=== PATIENT | female | born 1990 | race African-American/Black ===

== ENCOUNTER 2021-04-22 13:30 | Emergency (ER) | payer OTHER, SELFPAY ==
[2021-04-22 13:32] VITALS: BP 126/65; PULSE 71; RESP 18; TEMP 36.3; O2SAT 100
[2021-04-22 13:55] LABS: Basophils Percent Auto 0.5 % (0.2-1.2); Eosinophils Percent Auto 0.3 % (0-4.4); Hematocrit 37.5 % (37.0-47.0); Hemoglobin 12.6 g/dL (12.0-15.0); Immature Granulocyte Absolute 0.02 K/mm3 (0.00-0.031); Immature Granulocyte Percent A 0.2 % (0-0.5); Lymphocytes Percent Auto 19.7 % (18.3-44.2); Mean Corpuscular HGB Conc 33.6 g/dl (32-36); Mean Corpuscular Hemoglobin 31.3 pg (26-34); Mean Corpuscular Volume 93.3 fl (80-100); Mean Platelet Volume 10.7 fl (7.4-10.4); Monocytes Absolute Auto 0.5 K/mm3 (0.1-0.6); Monocytes Percent Auto 5.3 % (2.6-8.5); Neutrophils Absolute Auto 6.4 K/mm3 (1.3-6.7); Platelet Count Result 265 k/mm3 (150-375); Red Blood Count 4.02 M/mm3 (4.2-5.4); Red Cell Distribution Width 11.9 % (11.5-14.5); White Blood Count 8.7 K/mm3 (4.5-10.0)
[2021-04-22 13:59] LABS: Add Urine Microscopic? YES; Appearance Urine Cloudy (Clear); Bacteria Urine Trace /hpf; Bilirubin Urine Negative (Negative); Blood Urine 1+ (Negative); Color Urine Yellow (Yellow); Glucose Urine UA Negative (Negative); Ketones Urine 2+ mg/dL (Negative); Leukocyte Esterase Ur Trace LEU/UL (Negative); Mucus Urine Few /lpf; Nitrate Urine Negative (Negative); Protein Urine 1+ mg/dL (Negative); Specific Grav Ur 1.029 (1.001-1.035); Squamous Epithelial Cell Urine Many /hpf (Few)
[2021-04-22 14:05] LABS: Alanine Aminotransferase 23 U/L (4-35); Albumin Level 4.3 g/dL (3.5-5.1); Alkaline Phosphatase 72 U/L (38-126); Anion Gap 9 mmol/L (8-16); Aspartate Amino Transferase 23 U/L (14-36); Bilirubin,Total 1.1 mg/dL (0.2-1.3); Blood Urea Nitrogen 7 mg/dL (7-17); Calcium 9.2 mg/dL (8.4-10.2); Carbon Dioxide 23 mmol/L (22-30); Chloride 102 mmol/L (98-107); Estimated CRCL calculation 121 ml/min; Estimated Glomerular Filt Rate > 60; Glucose 89 mg/dL (65-105); Lipase 23 U/L (23-300); Potassium 3.8 mmol/L (3.4-5.0); Sodium 134 mmol/L (137-145)
[2021-04-22] MEDS: DEXTROSE 5%/LACTATED RINGERS 1,000 ML 999 ML IV CONT ×2 (18:08→19:21)
[2021-04-22] MEDS: PROCHLORPERAZINE EDISYLATE 10 MG/2 ML VIAL IV PUSH (18:08)
[2021-04-22] MEDS: FAMOTIDINE 20 MG/2 ML VIAL IV PUSH (18:08)
--- NOTE | 2021-04-22 18:12 | ED.GENADULT ---
HPI - General Adult General Chief complaint: Nausea/Vomiting/Diarrhea Stated complaint: vomiting Time Seen by Provider: 04/22/21 17:20 Source: patient, family, RN notes reviewed and old records reviewed Mode of arrival: ambulatory Limitations: no limitations History of Present Illness HPI narrative: Patient is a 31-year-old female who presents to emergency department for evaluation of inability to tolerate p.o. intake has been taking Zofran prescribed by her heating and cooling systems engineer with no improvement patient denies any abdominal pain notes that she is having some resolving bleeding that began after her ultrasound on Tuesday by her heating and cooling systems engineer Dr. Rosales. Patient denies abdominal pain fever chills urinary symptoms or other complaints presents in no distress Related Data Allergies Allergy/AdvReac Type Severity Reaction Status Date / Time ciprofloxacin Allergy Mild HIVES Unverified 01/08/19 20:41 Review of Systems Review of Systems: All systems reviewed & are unremarkable except as noted in HPI and below PMFSH Social History Social History Gender identity (if verbalized by the patient): Female Exam Narrative: Exam Narrative: GENERAL: Well-appearing, well-nourished, and in no acute distress. HEAD: Normocephalic, atraumatic. EYES: PERRLA and EOMI. ENT: Nares clear, no rhinorrhea or epistaxis. Mucous membranes moist. CHEST: Clear to auscultation. No respiratory distress. No wheezes rales or rhonchi HEART: Regular rate and rhythm. No murmur heard. Normal peripheral pulses. ABDOMEN: Soft, nontender,distended EXTREMITIES: Normal range of motion. No edema. SKIN: Warm, dry, no rash. NEURO: No focal deficits. Alert and oriented x3. PSYCH: Normal mood and affect. Course Course Emergency Course: Patient evaluated in the emergency department was hydrated with 2 L feeling much better at this time able to tolerate p.o. intake will be discharged home for further evaluation on outpatient basis agreeing to follow with her heating and cooling systems engineer tomorrow Vital Signs Vital signs: Vital Signs Temperature 97.3 F L 04/22/21 13:32 Pulse Rate 71 04/22/21 13:32 Respiratory Rate 18 04/22/21 13:32 Blood Pressure 126/65 04/22/21 13:32 Pulse Oximetry 100 04/22/21 13:32 Temperature 97.3 F L 04/22/21 13:32 Pulse Rate 60 04/22/21 19:22 Respiratory Rate 18 04/22/21 19:22 Blood Pressure 127/79 04/22/21 19:22 Pulse Oximetry 99 04/22/21 19:22 Medical Decision Making MDM Narrative Medical decision making narrative: Patient presented with nausea and vomiting dehydration which were addressed in the emergency department patient had improvement with medications will be discharged home at this time with outpatient follow-up provided with reasons to return Vital Signs Vital Signs: Vital Signs Temperature 97.3 F L 04/22/21 13:32 Pulse Rate 71 04/22/21 13:32 Respiratory Rate 18 04/22/21 13:32 Blood Pressure 126/65 04/22/21 13:32 Pulse Oximetry 100 04/22/21 13:32 Temperature 97.3 F L 04/22/21 13:32 Pulse Rate 60 04/22/21 19:22 Respiratory Rate 18 04/22/21 19:22 Blood Pressure 127/79 04/22/21 19:22 Pulse Oximetry 99 04/22/21 19:22 Lab Data Result diagrams: 04/22/21 13:37 04/22/21 13:37 Labs: Lab Results 04/22/21 04/22/21 04/22/21 Range/Units 13:37 13:37 13:37 WBC 8.7 (4.5-10.0) K/mm3 RBC 4.02 L (4.2-5.4) M/mm3 Hgb 12.6 (12.0-15.0) g/dL Hct 37.5 (37.0-47.0) % MCV 93.3 (80-100) fl MCH 31.3 (26-34) pg MCHC 33.6 (32-36) g/dl RDW 11.9 (11.5-14.5) % Plt Count 265 (150-375) k/mm3 MPV 10.7 H (7.4-10.4) fl Immature Gran % (Auto) 0.2 (0-0.5) % Neut % (Auto) 74.0 H (45.5-73.1) % Lymph % (Auto) 19.7 (18.3-44.2) % [place] % (Auto) 5.3 (2.6-8.5) % Eos % (Auto) 0.3 (0-4.4) % Baso % (Auto) 0.5 (0.2-1.2) % Lymph # (Auto) 1.70 (0.9
[2021-04-22 19:22] VITALS: BP 127/79; PULSE 60; RESP 18; O2SAT 99
== END 2021-04-22 20:11 | disposition home or self-care (01) ==
PROVIDERS: Emergency Provider Emergency Medicine; PCP Obstetrics & Gynecology
DX: O21.0 Mild hyperemesis gravidarum (principal); Z3A.00 Weeks of gestation of pregnancy not specified
CPT/HCPCS: 36415; 80053; 81001; 81025; 83690; 85025; 86850; 86900; 86901; 96361; 96374; 96375; 99284; J0780; J7121

== ENCOUNTER 2021-06-25 14:18 | Observation (INO) | payer OTHER, SELFPAY ==
--- NOTE | ~2021-06-25 | US_ITS ---
EXAMINATION: US OB limited DATE: 06/25/2021 16:15 INDICATION: Subchorionic hemorrhage, second trimester TECHNIQUE: Real-time ultrasound of the pelvis was performed. The interpreting radiologist was not pre sent for the study. COMPARISON: None. FINDINGS: There is a single living fetus in vertex presentation. The placenta is anterior. No subchor ionic hemorrhage is identified. cardiac activity and movement are noted. heart rate is 134 beats per minute (bpm). The amniotic fluid index is subjectively normal. IMPRESSION: 1. Single living fetus in vertex presentation. 2. No subchorionic hemorrhage identified. Reviewed, dictated and finalized at location A.
[2021-06-25 14:52] VITALS: BP 137/73; PULSE 64; TEMP 36.3
[2021-06-25 15:00] VITALS: BP 113/70; PULSE 62
[2021-06-25 15:15] VITALS: BP 112/85; PULSE 69
[2021-06-25 15:15] LABS: Basophils Percent Auto 0.4 % (0.2-1.2); Eosinophils Percent Auto 0.2 % (0-4.4); Hematocrit 34.1 % (37.0-47.0); Hemoglobin 11.3 g/dL (12.0-15.0); Immature Granulocyte Absolute 0.03 K/mm3 (0.00-0.031); Immature Granulocyte Percent A 0.3 % (0-0.5); Lymphocytes Absolute Auto 2.09 K/mm3 (0.9-3.2); Mean Corpuscular HGB Conc 33.1 g/dl (32-36); Mean Corpuscular Hemoglobin 31.6 pg (26-34); Mean Corpuscular Volume 95.3 fl (80-100); Mean Platelet Volume 11.4 fl (7.4-10.4); Monocytes Absolute Auto 0.5 K/mm3 (0.1-0.6); Neutrophils Absolute Auto 7.8 K/mm3 (1.3-6.7); Neutrophils Percent Auto 74.1 % (45.5-73.1); Platelet Count Result 197 k/mm3 (150-375); Red Blood Count 3.58 M/mm3 (4.2-5.4); Red Cell Distribution Width 12.4 % (11.5-14.5); White Blood Count 10.5 K/mm3 (4.5-10.0)
[2021-06-25] MEDS: LACTATED RINGERS 1,000 ML 999 ML IV CONT (15:18)
[2021-06-25] MEDS: ONDANSETRON INJ 4 MG/2 ML VIAL IV PUSH (15:20)
[2021-06-25] MEDS: FAMOTIDINE 20 MG/2 ML VIAL IV PUSH (15:21)
[2021-06-25 15:22] VITALS: BMI 32.1
--- NOTE | 2021-06-25 15:22 | OBADM ---
This patient, Noam Etienne, admitted to the OB room OB Post 112 for observation. Patient/family oriented to hospital policies and general routines including ID bracelet, bed and alarms, visiting hours, pain management, procedures, bathroom and other care routines, personal items, smoking policy, room service/diet, and visiting hours. Patient/Family are encouraged to report perceived risks to care and to ask questions if they do not understand what they are told or what they should do.
[2021-06-25 15:30] VITALS: BP 114/64; PULSE 60
[2021-06-25 15:32] VITALS: BP 114/64; PULSE 60
--- NOTE | 2021-06-25 17:00 | PC.NURSE ---
4445--Page to Dr. Rosales
--- NOTE | 2021-06-25 17:03 | PC.NURSE ---
8788--Report to Dr. Rosales re: meds given, IVF's given and u/s results. Orders to [place] home.
--- NOTE | 2021-07-03 05:02 | P.PNOB_ITS ---
OB - Triage/Final Diagnosis Visit Information Reason for evaluation: threatened labor Comments/Additional reasons for admission: I have assessed the risk for this patient, Noam Etienne, and determined that she would benefit from observation care. Evaluation Laboratory results: Laboratory Tests 06/25/21 15:06 WBC 10.5 H RBC 3.58 L Hgb 11.3 L Hct 34.1 L MCV 95.3 MCH 31.6 MCHC 33.1 RDW 12.4 Plt Count 197 MPV 11.4 H Immature Gran % (Auto) 0.3 Neut % (Auto) 74.1 H Lymph % (Auto) 20.0 [place] % (Auto) 5.0 Eos % (Auto) 0.2 Baso % (Auto) 0.4 Lymph # (Auto) 2.09 [place] # (Auto) 0.5 Eos # (Auto) 0.0 Baso # (Auto) 0.0 Abs Immat Gran (auto) 0.03 Absolute Neuts (auto) 7.8 H Absolute Nucleated RBC 0.0 Nucleated RBC % 0.0
== END 2021-06-25 18:00 | disposition home or self-care (01) ==
PROVIDERS: Admitting Provider Obstetrics & Gynecology; Visit Provider Obstetrics & Gynecology
DX: O47.02 False labor before 37 completed weeks of gestation, second trimester (principal); Z3A.17 17 weeks gestation of pregnancy
CPT/HCPCS: 36415; 76815; 85025; 96374; 96375; G0378; G0379; J2405; J7120

== ENCOUNTER 2021-09-05 21:07 | Observation (INO) | payer OTHER, SELFPAY ==
[2021-09-05 21:28] VITALS: BP 112/61; PULSE 83
[2021-09-05 21:31] VITALS: BP 108/59; PULSE 84
[2021-09-05 21:49] LABS: Basophils Percent Auto 0.3 % (0.2-1.2); Eosinophils Percent Auto 0.2 % (0-4.4); Immature Granulocyte Absolute 0.06 K/mm3 (0.00-0.031); Immature Granulocyte Percent A 0.5 % (0-0.5); Lymphocytes Absolute Auto 1.51 K/mm3 (0.9-3.2); Lymphocytes Percent Auto 12.5 % (18.3-44.2); Mean Corpuscular HGB Conc 33.3 g/dl (32-36); Mean Corpuscular Hemoglobin 32.4 pg (26-34); Mean Corpuscular Volume 97.1 fl (80-100); Mean Platelet Volume 10.3 fl (7.4-10.4); Monocytes Absolute Auto 0.5 K/mm3 (0.1-0.6); Neutrophils Absolute Auto 9.9 K/mm3 (1.3-6.7); Neutrophils Percent Auto 82.5 % (45.5-73.1); Platelet Count Result 244 k/mm3 (150-375); Red Cell Distribution Width 12.3 % (11.5-14.5); White Blood Count 12.1 K/mm3 (4.5-10.0)
[2021-09-05 21:52] LABS: Add Urine Microscopic? NO; Appearance Urine Clear (Clear); Bilirubin Urine Negative (Negative); Blood Urine Negative (Negative); Color Urine Straw (Yellow); Glucose Urine UA Negative (Negative); Ketones Urine Negative (Negative); Leukocyte Esterase Ur Negative LEU/UL (NEGATIVE); Nitrate Urine Negative (Negative); Protein Urine Negative (Negative); Urobilinogen Urine Negative mg/dL (<2.0)
[2021-09-05 21:56] LABS: Specific Grav Ur 1.004 (1.001-1.035)
[2021-09-05 21:59] LABS: Alanine Aminotransferase 9 U/L (4-35); Albumin Level 3.8 g/dL (3.5-5.1); Alkaline Phosphatase 64 U/L (38-126); Anion Gap 6 mmol/L (8-16); Aspartate Amino Transferase 15 U/L (14-36); Bilirubin,Total 0.7 mg/dL (0.2-1.3); Blood Urea Nitrogen 3 mg/dL (7-17); Calcium 8.9 mg/dL (8.4-10.2); Carbon Dioxide 23 mmol/L (22-30); Chloride 105 mmol/L (98-107); Estimated Glomerular Filt Rate > 60; Glucose 100 mg/dL (65-110); Potassium 3.2 mmol/L (3.4-5.0); Sodium 134 mmol/L (137-145)
[2021-09-05 22:00] VITALS: TEMP 36.4
--- NOTE | 2021-09-09 20:35 | PM.OBTRLD ---
OB - Triage/Final Diagnosis Visit Information Comments/Additional reasons for admission: I have assessed the risk for this patient, Noam Etienne, and determined that she would benefit from observation care. Evaluation Laboratory results: Laboratory Tests 09/05/21 09/05/21 09/05/21 21:43 21:43 21:43 WBC 12.1 H RBC 3.40 L Hgb 11.0 L Hct 33.0 L MCV 97.1 MCH 32.4 MCHC 33.3 RDW 12.3 Plt Count 244 MPV 10.3 Immature Gran % (Auto) 0.5 Neut % (Auto) 82.5 H Lymph % (Auto) 12.5 L [place] % (Auto) 4.0 Eos % (Auto) 0.2 Baso % (Auto) 0.3 Lymph # (Auto) 1.51 [place] # (Auto) 0.5 Eos # (Auto) 0.0 Baso # (Auto) 0.0 Abs Immat Gran (auto) 0.06 H Absolute Neuts (auto) 9.9 H Absolute Nucleated RBC 0.0 Nucleated RBC % 0.0 Sodium 134 L Potassium 3.2 L Chloride 105 Carbon Dioxide 23 Anion Gap 6 L BUN 3 L Creatinine 0.40 L Estim Creat Clear Calc Not Reportable Estimated GFR > 60 Glucose 100 Calcium 8.9 Total Bilirubin 0.7 AST 15 ALT 9 Alkaline Phosphatase 64 Total Protein 7.0 Albumin 3.8 Urine Color Straw Urine Appearance Clear Urine pH 7.0 Ur Specific [place] 1.004 Urine Protein Negative Urine Glucose (UA) Negative Urine Ketones Negative Ur Blood (Man) Negative Urine Nitrate Negative Urine Bilirubin Negative Urine Urobilinogen Negative Ur Leukocyte Esterase Negative Final Diagnosis (1) Syncope due to orthostatic hypotension: Code(s): I95.1 - Orthostatic hypotension Status: Acute
== END 2021-09-05 22:25 | disposition home or self-care (01) ==
PROVIDERS: Admitting Provider Obstetrics & Gynecology; Visit Provider Obstetrics & Gynecology
DX: O26.893 Other specified pregnancy related conditions, third trimester (principal); I95.1 Orthostatic hypotension; Z3A.28 28 weeks gestation of pregnancy
CPT/HCPCS: 36415; 80053; 81003; 85025; 87086; 87088; G0378; G0379

== ENCOUNTER 2021-09-06 19:29 | Emergency (ER) | payer OTHER, SELFPAY ==
--- NOTE | ~2021-09-06 | CT_ITS ---
EXAMINATION: CT brain wo con DATE: 09/06/2021 20:02 INDICATION: Syncope with fall and head injury TECHNIQUE: Computed tomography (CT) of the head was performed without intravenous contrast. Sagittal and coronal reconstructions were performed. The mA was adjusted according to patient size. Iterative reconstruction technique was employed. The dose-length product was 605.33 mGy-cm. COMPARISON: None FINDINGS: No fracture. No acute intracranial hemorrhage, acute infarction or abnormal extra axial fluid collect ion. Ventricles are normal and symmetric. No mass/mass effect. The orbits, paranasal sinuses and mast oid air cells are normal. IMPRESSION: 1. Normal brain. No fracture or acute intracranial process.. Reviewed, dictated and finalized at location A.
[2021-09-06 19:44] VITALS: BP 130/73; PULSE 76; RESP 16; TEMP 37; O2SAT 100
[2021-09-06 21:53] VITALS: BP 126/70; PULSE 78; RESP 16; O2SAT 100
--- NOTE | 2021-09-06 21:55 | ED.GENADULT ---
HPI - General Adult General Chief complaint: Head Injury <Diana Zhang PA-C - Last Filed: 09/06/21 22:00> Stated complaint: Vomiting, head injury yesterday <Diana Zhang PA-C - Last Filed: 09/06/21 22:00> Time Seen by Provider: 09/06/21 20:56 <Diana Zhang PA-C - Last Filed: 09/06/21 22:00> Source: patient <JESUS Byers Last Filed: 09/06/21 22:00> Mode of arrival: ambulatory <Diana Zhang PA-C - Last Filed: 09/06/21 22:00> Limitations: no limitations <Diana Zhang PA-C - Last Filed: 09/06/21 22:00> History of Present Illness HPI narrative: Patient who is G4, P3 at 28 weeks . Presents with chief complaint of head injury. Patient states that she got up suddenly yesterday and had a syncopal episode. Patient states that she hit both the front and the back of her head. She states that [facility] and had monitoring which was normal. She states that she was told if she continued to have head pain or nausea or vomiting today to present to the emergency department for CT of her head. Patient reports vomiting issues throughout her which is managed by reglan and tracy. She states she has been able to hydrate. She is keeping close follow up with her PCP Dr Rosales. <Diana Zhang PA-C - Last Filed: 09/06/21 22:00> Related Data Home medications: Home Medications Medication Instructions Recorded Confirmed No Home Medications 09/06/21 09/06/21 <Diana Zhang PA-C - Last Filed: 09/06/21 22:00> Allergies/adverse reactions: Allergies Allergy/AdvReac Type Severity Reaction Status Date / Time ciprofloxacin Allergy Mild HIVES Verified 09/06/21 19:44 <Diana Zhang PA-C - Last Filed: 09/06/21 22:00> Review of Systems Review of Systems: CONSTITUTIONAL: Denies fever, chills, or sweats. EYES: Denies visual changes, redness, or discharge. ENT: Denies rhinorrhea, congestion, sore throat, or otalgia. CARDIOVASCULAR: Denies chest pain, palpitations, or edema. RESPIRATORY: Denies cough or dyspnea. GASTROINTESTINAL: Reports nausea denies abdominal pain or diarrhea. GENITOURINARY: Denies dysuria or hematuria. SKIN: Denies rash or itching. MUSCULOSKELETAL: Denies back pain, joint pain, or myalgia. NEUROLOGIC: Reports headache denies numbness, dizziness, or weakness. PSYCHIATRIC: Denies anxiety or depression. <Diana Zhang PA-C - Last Filed: 09/06/21 22:00> [facility] Social History Social History: Social History Gender identity (if verbalized by the patient): Female <Diana Zhang PA-C - Last Filed: 09/06/21 22:00> Exam Narrative: GENERAL: Well-appearing, well-nourished, and in no acute distress. HEAD: Normocephalic. Faint bruising to anterior forehead. No lacerations or hematomas noted. EYES: PERRLA and EOMI. ENT: Nares clear, no rhinorrhea or epistaxis. Mucous membranes moist. Oropharynx without tonsillar hypertrophy exudate or other lesions. Bilateral TMs pearly sandoval nonbulging. No hemotympanum. NECK: Supple. No adenopathy or masses. Range of motion intact. Nontender to palpation. CHEST: Clear to auscultation. No respiratory distress. No wheezes rales or rhonchi HEART: Regular rate and rhythm. No murmur heard. Normal peripheral pulses. EXTREMITIES: Normal range of motion. No edema. SKIN: Warm, dry, no rash. NEURO: No focal deficits. Alert and oriented x3. PSYCH: Normal mood and affect. <Diana Zhang PA-C - Last Filed: 09/06/21 22:00> Course Vital Signs Vital signs: Vital Signs Temperature 37.0 C 09/06/21 19:44 Pulse Rate 76 09/06/21 19:44 Respiratory Rate 16 09/06/21 19:44 Blood Pressure 130/73 09/06/21 19:44 Pulse Oximetry 100 09/06/21 19:44 Temperature 37.0 C 10/10/21 19:44 Pulse Rate 78 09/06/21 21:53 Respiratory Rate 16 09/06/21 21:53 Blood Pressure 126/70 09/06/21 21:53
== END 2021-09-06 21:53 | disposition home or self-care (01) ==
PROVIDERS: Emergency Provider Emergency Medicine; PCP Obstetrics & Gynecology
DX: O9A.213 Injury, poisoning and certain other consequences of external causes complicating pregnancy, third trimester (principal); S09.90XA Unspecified injury of head, initial encounter; Z3A.28 28 weeks gestation of pregnancy; W18.39XA Other fall on same level, initial encounter
CPT/HCPCS: 70450; 99284

== ENCOUNTER 2021-11-06 02:03 | Inpatient (IN) | payer OTHER, SELFPAY ==
[2021-11-06] VITALS (68 sets, daily range): BP systolic 85–132; BP diastolic 15–94; PULSE 59–185; RESP 16–18; TEMP 36.2–36.9; O2SAT 97–100; BMI 31.6
[2021-11-06] MEDS: AMPICILLIN 2 GM/NS 100 ML 2 GM/100 ML BAG IVPB (03:27)
[2021-11-06] MEDS: LACTATED RINGERS 1,000 ML 125 ML IV CONT ×2 (03:28→04:19)
[2021-11-06 03:37] LABS: Basophils Absolute Auto 0.1 K/mm3 (0.0-0.1); Basophils Percent Auto 0.4 % (0.2-1.2); Eosinophils Absolute Auto 0.1 K/mm3 (0-0.3); Eosinophils Percent Auto 0.5 % (0-4.4); Hematocrit 34.3 % (37.0-47.0); Hemoglobin 11.6 g/dL (12.0-15.0); Immature Granulocyte Absolute 0.06 K/mm3 (0.00-0.031); Immature Granulocyte Percent A 0.5 % (0-0.5); Lymphocytes Absolute Auto 1.73 K/mm3 (0.9-3.2); Lymphocytes Percent Auto 14.4 % (18.3-44.2); Mean Corpuscular HGB Conc 33.8 g/dl (32-36); Mean Corpuscular Hemoglobin 32.4 pg (26-34); Mean Corpuscular Volume 95.8 fl (80-100); Mean Platelet Volume 11.2 fl (7.4-10.4); Monocytes Absolute Auto 0.7 K/mm3 (0.1-0.6); Monocytes Percent Auto 5.6 % (2.6-8.5); Neutrophils Absolute Auto 9.5 K/mm3 (1.3-6.7); Neutrophils Percent Auto 78.6 % (45.5-73.1); Platelet Count Result 224 k/mm3 (150-375); Red Blood Count 3.58 M/mm3 (4.2-5.4); Red Cell Distribution Width 12.4 % (11.5-14.5)
--- NOTE | 2021-11-06 04:26 | WPDANESEPPF ---
Anes - Initial Pre Proc Eval Procedure: labor epidural Date/Time: 11/06/21 04:26 Surgeon: Mp Rosales MD Pre Op Diagnosis: labor pain Pre Op Diagnosis: Contractions Patient Data Age: 31 Gender: F Height: 1.63 m Weight: 83.5 kg Last Vital Signs Temp 36.2 C L 11/06/21 03:00 Pulse 65 11/06/21 04:24 BP 109/64 11/06/21 04:24 Pulse Ox 98 11/06/21 04:22 Allergies Allergy/AdvReac Type Severity Reaction Status Date / Time ciprofloxacin Allergy Mild HIVES Verified 09/06/21 19:44 Home Medications Medication Instructions Recorded Confirmed Type PNV cmb#95-ferrous fumarate-FA 1 tablet PO DAILY 11/06/21 11/06/21 History [] Laboratory Tests 11/06/21 11/06/21 03:19 03:19 WBC 12.0 K/mm3 H K/mm3 (4.5-10.0) RBC 3.58 M/mm3 L M/mm3 (4.2-5.4) Hgb 11.6 g/dL L g/dL (12.0-15.0) Hct 34.3 % L % (37.0-47.0) MCV 95.8 fl fl (80-100) MCH 32.4 pg pg (26-34) MCHC 33.8 g/dl g/dl (32-36) RDW 12.4 % % (11.5-14.5) Plt Count 224 k/mm3 k/mm3 (150-375) MPV 11.2 fl H fl (7.4-10.4) Immature Gran % (Auto) 0.5 % % (0-0.5) Neut % (Auto) 78.6 % H % (45.5-73.1) Lymph % (Auto) 14.4 % L % (18.3-44.2) [place] % (Auto) 5.6 % % (2.6-8.5) Eos % (Auto) 0.5 % % (0-4.4) Baso % (Auto) 0.4 % % (0.2-1.2) Lymph # (Auto) 1.73 K/mm3 K/mm3 (0.9-3.2) [place] # (Auto) 0.7 K/mm3 H K/mm3 (0.1-0.6) Eos # (Auto) 0.1 K/mm3 K/mm3 (0-0.3) Baso # (Auto) 0.1 K/mm3 K/mm3 (0.0-0.1) Abs Immat Gran (auto) 0.06 K/mm3 H K/mm3 (0.00-0.031) Absolute Neuts (auto) 9.5 K/mm3 H K/mm3 (1.3-6.7) Absolute Nucleated RBC 0.0 K/mm3 K/mm3 (0.0-0.012) Nucleated RBC % 0.0 % % (0.0-0.2) RPR Pending Patient hx anesthesia problems: none Family hx anesthesia problems: none Results Review: All pre-operative results and documents have been reviewed as part of the pre-operative evaluation. [facility] Social History Social History Smoking status: Never smoker Second hand tobacco smoke exposure: No Substance use: never Gender identity (if verbalized by the patient): Female Spiritual care concerns: No Anes - Eval Final PreProcedure Day of Procedure 11/06/21 04:26 Patient weight: obese Heart: regular rate and rhythm Lungs: clear to auscultation and normal air movement Airway: Mallampati scale class II Neurological: alert and oriented ASA classification: II Anesthetic plan: proceed Anesthesia type and monitoring: regional epidural and standard monitoring Results Review: All pre-operative results and documents have been reviewed as part of the pre-operative evaluation. Informed Consent: The patient's anesthetic plan and its attendant risks and benefits were discussed with the patient/family/POA. Questions were solicited and answers provided to the satisfaction of the patient/family/POA.
[2021-11-06] MEDS: AMPICILLIN 1 GM/NS 50 ML 1 GM/50 ML BAG IVPB (07:32)
[2021-11-06] MEDS: OXYTOCIN 30 UNITS/NS 500 ML 30 UNITS/500 ML BAG IV CONT (07:32)
[2021-11-06] MEDS: ONDANSETRON INJ 4 MG/2 ML VIAL IV PUSH (08:51)
--- NOTE | 2021-11-06 11:02 | WPDOBADMIT ---
Obstetrics - Admit Note Admission Note: record reviewed. No pertinent additions to the history and/or any subsequent changes in the physical findings that are not consistent with the expected course of the were found. Additions to the history and/or subsequent changes in the physical findings follow. None.
--- NOTE | 2021-11-06 11:02 | WPDHPUPDATE1 ---
History and Physical Update Update Date/Time: 11/06/21 11:02 History and Physical has been reviewed, including an updated exam of the patient. There are NO changes in the patient's condition. Risks, benefits, and alternatives have been discussed and questions answered. Patient agrees to proceed with procedure.
--- NOTE | 2021-11-06 11:03 | PM.OBPRVD ---
OB - Delivery Note Procedure events: Labor < 37 Weeks Route of delivery: Episiotomy description: None Laceration Description: None Quantitative Blood Loss (ml): 100 Anesthesia type: Epidural Disposition: floor Narrative: patient prepped and draped in usual manner for this procedure. Maternal expulsive efforts delivered vertex of the rest of baby without difficulty. Cord was clamped and cut and placenta delivered spontaneously. Uterus was well contracted. Cervix vagina vulva were inspected with no significant lacerations or tears. At this point seizure was considered terminated. Baby Weeks of gestation at delivery: 36 gender: Male Weight (pounds): 6 Weight (ounces): 4 score one minute: 9 score five minutes: 9
[2021-11-06] MEDS: OXYTOCIN 30 UNITS/NS 500 ML 30 UNITS/500 ML BAG 125 UNITS IV CONT (11:13)
[2021-11-06 12:37] LABS: Rapid Plasma Reagin Non-Reactive (NonReactive)
--- NOTE | 2021-11-06 14:15 | PC.NURSE ---
Patient transferred to post room #279 per wheelchair from labor and delivery. Support person present. Oriented to unit, room, information board, rooming in, admission packet and security measures. Patient verbalizes understanding.
[2021-11-06] MEDS: IBUPROFEN 600 MG TABLET PO ×2 (15:10→22:02)
[2021-11-07] VITALS: BP 113/65; PULSE 58; RESP 18; TEMP 36.2; O2SAT 100
[2021-11-07] MEDS: IBUPROFEN 600 MG TABLET PO ×2 (03:47→16:22)
[2021-11-07] MEDS: DOCUSATE SODIUM 100 MG CAPSULE PO ×3 (03:52→19:09)
[2021-11-07 04:50] LABS: Hematocrit 29.1 % (37.0-47.0); Hemoglobin 9.5 g/dL (12.0-15.0)
[2021-11-07 09:25] VITALS: BP 113/52; PULSE 61; RESP 18; TEMP 36.1
[2021-11-07] MEDS: MULTIVIT/MIN/PREN/FOL AC/IRON TABLET 1 TAB PO (09:28)
[2021-11-07] MEDS: POLYSACCHARIDE IRON COMPLEX 150 MG CAPSULE PO ×2 (09:28→16:21)
--- NOTE | 2021-11-07 10:56 | PM.OBPNVD ---
OB - PN: Subj Subjective Date/time seen: 11/07/21 10:56 PPD#1 Noam reports doing well today. She states her pain is controlled. Her bleeding is light. She has tolerated regular diet, voided, passed gas, and ambulated w/o issues. She is breast feeding. She would like her son circumcised. She would like to go home tomorrow. She denies CP, SOB, fever, chills, N/V, DEMARCO vision changes, dizziness or palpitations. OB - PN: Obj Data Labs CBC & Chem 7: 11/07/21 03:50 Labs: Laboratory Results - last 24 hr 11/06/21 11/07/21 03:19 03:50 Hgb 9.5 L Hct 29.1 L RPR Non-reactive OB - PN A/P Assessment and Plan (1) delivery: Code(s): O60.10X0 - labor with delivery, unspecified trimester, not applicable or unspecified Status: Acute Plan day: 1 Plan: routine care and discharge home (tomorrow) Comments: - f/u in 4 wks w/ Dr. Rosales - pelvic rest; take meds as prescribed - ER return precautions: fever, n/v/abd pain, HTN, bleeding Time Spent With Patient Time: Total time spent is greater than 50% in coordination of care (as documented) at patient's floor/unit and/or counseling patient: Review of Systems Review of Systems: All systems reviewed & are unremarkable except as noted in HPI and below (HPI) Exam Const: General: cooperative, healthy appearing, comfortable and no acute distress Resp: Effort & Inspection: normal respiratory effort Auscultation: clear to auscultation bilaterally Cardio: Rate: regular rate GI: Inspection: normal to inspection and non-distended GI Palp: No abdominal tenderness and Yes Soft to palpation Auscultation: normal bowel sounds : Other: fundus firm Skin: General skin exam: normal color Neuro: General: patient oriented x3 Extrem: General: normal to inspection Psych: Appearance: grossly normal Affect: normal affect Attitude: cooperative
--- NOTE | 2021-11-07 14:48 | WPDANLDPN2 ---
Anes-Prog Note L&D Date/Time: 11/07/21 14:48 Comfortable throughout: labor and delivery Neuraxial method: epidural Epidural/Spinal procedure site: clean & non-tender Neuro status: Neuro function grossly intact. Cardiovascular status: normal Respiratory status: normal Airway patency: baseline Mental status: baseline Post-Op hydration status: normal Vital Signs: Last Vital Signs Temp 36.1 C L 11/07/21 09:25 Pulse 61 11/07/21 09:25 Resp 18 11/07/21 09:25 BP 113/52 L 11/07/21 09:25 Pulse Ox 100 11/07/21 00:00 Pain score (VAS): 12/07 Post-procedural complaints: none Patient feedback: Patient satisfied with anesthetic care.
[2021-11-07 19:15] VITALS: BP 125/78; PULSE 64; RESP 16; TEMP 36.4
--- NOTE | 2021-11-07 19:42 | PC.NURSE ---
11/07/2021 at 1920 Patient was given the opportunity to view the discharge video Mother & Baby Care, The First Two Weeks and to ask questions. Patient declined viewing the video and has been given the mother/baby guide for home reference.
[2021-11-08 06:45] VITALS: BP 109/73; PULSE 58; RESP 18; TEMP 36.5
--- NOTE | 2021-11-08 09:45 | PM.OBDSVD ---
DS: Admitting Diagnosis Discharge Date 11/08/21 Admitting Diagnosis labor DS: Discharge Diagnosis Discharge Diagnosis (1) delivery: Code(s): O60.10X0 - labor with delivery, unspecified trimester, not applicable or unspecified Status: Acute OB - DS: Summary OB Procedures : Ultrasound OB Procedures Intrapartum: Spontaneous Vag Delivery OB Procedures: : None Peripartum Data Infant Delivery Method: Natural Vaginal Laceration Description: None complications: none 1: Gender: Male Disposition of : home Status at Discharge Functional status at discharge: independent ambulation Overall status at discharge: patient is back to baseline Time Spent with Patient Time attestation: Total time spent providing and/or coordinating discharge services: Time spent: Less than 30 minutes Exam Const: General: cooperative, healthy appearing, comfortable and no acute distress Resp: Effort & Inspection: normal respiratory effort Auscultation: clear to auscultation bilaterally Cardio: Rate: regular rate GI: Inspection: normal to inspection and non-distended GI Palp: No abdominal tenderness and Yes Soft to palpation Auscultation: normal bowel sounds : Other: fundus firm Skin: General skin exam: normal color Neuro: General: patient oriented x3 Extrem: General: normal to inspection Psych: Appearance: grossly normal Affect: normal affect Attitude: cooperative DS: Data Data Completed and Pending Pending studies at discharge: Pending at discharge 11/06/21 11:28 Surgical [PTH] Routine Discharge Plan Discharge Attending physician on discharge: Malika Rebollar Discharging Clinician: Malika Rebollar Anticipated Discharge Date/Time: 11/08/21 09:00 Patient Disposition: Home, Self-Care Activity: pelvic rest Diet: regular Discharge Instructions: Education: Mom and Baby Guide Given to: Mother Follow-Up: Call your delivering provider's office for an appointment to be seen in: 4 Weeks [facility]. Appointment Date/Time: November 09, 2021 at 8:00 am What to expect at your follow-up visit: Physical Assessment Call [phone] if you are unable to keep your appointment time. BREAST CARE: * Wear a snug supportive bra. * For engorgement discomfort: Breast Feeding: * Apply warm moist washcloths * Express milk as needed to relieve engorgement * Wear loose clothing *Sore nipples: * Identify correct latch-on * Apply warm moist washcloths before and after nursing * Air dry nipples after nursing * May apply Lansinoh cream to nipples PERINEAL CARE: * Until bleeding stops, use your isabella bottle after urinating * Change your pad frequently throughout the day * You may take sitz baths several times a day (fill your bathtub with warm water and soak for 20 minutes.) Do NOT bathe in the water * No tub baths until seen by your physician - You may shower ACTIVITY: * Rest as much as possible. * Do not exercise or lift anything heavier than your baby (such as laundry or other children.) * Avoid stairs or driving as much as possible. * Do not put anything into the vagina. No douching, tampons, or sexual activity until seen by physician. NOTIFY PHYSICIAN IF YOU HAVE ANY QUESTIONS OR IF ANY OF THE FOLLOWING SYMPTOMS OCCUR: * If your perineum becomes red, swollen, or more painful than what you have experienced in the hospital. * If your vaginal bleeding becomes foul smelling. * If your vaginal bleeding becomes more heavy than a period or if your bleeding changes from pink to bright red. However, you may pass an occasional walnut-sized clot once or twice for the first week . * If you experience a sharp, shooting pain in you calves. * If you discover a hard, reddened area on yo
[2021-11-08] MEDS: DOCUSATE SODIUM 100 MG CAPSULE PO (10:38)
[2021-11-08] MEDS: MULTIVIT/MIN/PREN/FOL AC/IRON TABLET 1 TAB PO (10:38)
[2021-11-08] MEDS: IBUPROFEN 600 MG TABLET PO (10:39)
[2021-11-08] MEDS: POLYSACCHARIDE IRON COMPLEX 150 MG CAPSULE PO (10:39)
[2021-11-10 09:05] VITALS: BP 134/79; PULSE 67; RESP 16; TEMP 37.2; O2SAT 99
--- NOTE | 2021-11-13 14:45 | PM.EVENT ---
Event Note Event Note Event Note: Epidural started on 11/06/21 0400 and stopped 11-06-21 Immanuel Tran Jr, CRNA
== END 2021-11-08 11:42 | disposition home or self-care (01) | DRG 560 ==
LOC: ANHLDR 02:30 → ANHOB2 11-07 11:02 → ANHLDR 11-10 10:48 → ANHOB2 11-10 10:48
PROVIDERS: Admitting Provider Obstetrics & Gynecology; PCP Obstetrics & Gynecology; Visit Provider Obstetrics & Gynecology
DX: O77.0 Labor and delivery complicated by meconium in amniotic fluid (principal); Z3A.36 36 weeks gestation of pregnancy; Z37.0 Single live birth
CPT/HCPCS: 36415; 85014; 85018; 85025; 86592; 86850; 86900; 86901; 88307; A9270; J0290; J2405; J2590; J2795; J7120